=== PATIENT | male | born 1940 | race Caucasian/White ===

== ENCOUNTER 2022-09-16 12:28 | Day surgery (SDC) | payer MEDICARE, BC ==
[2022-09-16] MEDS ORDERED: Depo-Medrol 40 MG/ML IM ONE (12:29)
[2022-09-16] MEDS ORDERED: BUPIVACAINE 0.5% VIAL IJ ONE (12:29)
[2022-09-16] MEDS ORDERED: DIPRIVAN 200 MG/20 ML IV ONE (14:32)
--- NOTE | 2022-09-16 15:21 | XRAY ---
5 seconds of fluoroscopy was used in surgery for a left intra-articular knee injection.
--- NOTE | 2022-09-16 15:21 | XRAY ---
Indication: Left knee injection. Intraoperative fluoroscopy provided for 5 seconds. Single digital spot image submitted for interpretation demonstrates needle tip projecting over the left femur intercondylar notch. Small amount of contrast injected for needle tip placement. Correlate with intraoperative findings/report.
[2022-09-16] MEDS ORDERED: Lactated Ringers 1,000 ML IV ONE (15:26)
== END 2022-09-16 15:02 | disposition home or self-care (01) ==
LOC: SDC-PAIN 12:28
PROVIDERS: ATTEND Psychiatry & Neurology Pain Medicine
DX: M17.12 Unilateral primary osteoarthritis, left knee (principal); Z79.899 Other long term (current) drug therapy
CPT/HCPCS: 20610; 73560; 77002; J1030; J2704; Q9966